=== PATIENT | female | born 1985 | race Caucasian/White ===

== ENCOUNTER 2017-11-17 00:17 | Emergency (ER) | payer SELFPAY ==
[~2017-11-17] VITALS: Ht 160 cm; Wt 54.4 kg
[2017-11-17] VITALS (38 sets, daily range): BP systolic 95–118; BP diastolic 50–79
[~2017-11-17 00:17] MED LIST: DiphenhydrAMINE 50mg/ml Inj IM ONE; Haloperidol 5mg/ml Inj IM ONE; LORazepam Inj 2mg/ml 1ml IM ONE
[2017-11-17] MEDS ORDERED: Haloperidol 5mg/ml Inj ONE (00:26)
[2017-11-17] MEDS ORDERED: DiphenhydrAMINE 50mg/ml Inj ONE (00:26)
[2017-11-17] MEDS ORDERED: LORazepam Inj 2mg/ml 1ml ONE (00:26)
[2017-11-17 01:51] LABS: BASOPHILS % (AUTO) 1.4 % (0.0-2.0); EOSINOPHILS % (AUTO) 1.9 % (0.0-3.0); HEMOGLOBIN 13.1 G/DL (12.0-16.0); LYMPHOCYTES % (AUTO) 20.3 % (20.0-45.0); MEAN CORPUSCULAR VOLUME 93 FL (80-99); MONOCYTES % (AUTO) 10.3 % (1.0-10.0); NEUTROPHILS % (AUTO) 66.1 % (45.0-75.0); PLATELET COUNT 280 K/UL (150-450); RED BLOOD COUNT 4.09 M/UL (4.20-5.40); RED CELL DISTRIBUTION WIDTH 12.1 % (11.6-14.8); WHITE BLOOD COUNT 8.8 K/UL (4.8-10.8)
[2017-11-17 01:52] LABS: ANION GAP 8 mmol/L (5-15); BLOOD UREA NITROGEN 12 mg/dL (7-18); CALCIUM 8.9 MG/DL (8.5-10.1); CARBON DIOXIDE 26 MMOL/L (21-32); CHLORIDE 108 MMOL/L (98-107); CREATININE 0.8 MG/DL (0.55-1.30); SODIUM 141 MMOL/L (136-145)
[2017-11-17 01:57] LABS: ALANINE AMINOTRANSFERASE 97 U/L (12-78); ALBUMIN 3.5 G/DL (3.4-5.0); ALBUMIN/GLOBULIN RATIO 0.9 (1.0-2.7); ALKALINE PHOSPHATASE 56 U/L (46-116); ASPARTATE AMINO TRANSFERASE 46 U/L (15-37); BILIRUBIN,TOTAL 0.4 MG/DL (0.2-1.0)
[2017-11-17 02:10] LABS: APPEARANCE,URINE CLEAR; BILIRUBIN, URINE NEGATIVE (NEGATIVE); GLUCOSE, URINE (UA) NEGATIVE (NEGATIVE); KETONES,URINE NEGATIVE (NEGATIVE); LEUKOCYTE ESTERASE ,URINE 1+ (NEGATIVE); NITRITE,URINE NEGATIVE (NEGATIVE); PH,URINE 6 (4.5-8.0); PROTEIN,URINE 1+ (NEGATIVE); UROBILINOGEN,URINE 1 MG/DL (0.0-1.0)
[2017-11-17 02:14] LABS: COLOR,URINE YELLOW
[2017-11-17] MEDS ORDERED: Haloperidol 5mg/ml Inj IM ONE (03:30)
[2017-11-17] MEDS ORDERED: LORazepam Inj 2mg/ml 1ml IM ONE (03:30)
--- NOTE | 2017-11-17 03:34 | Emergency Room Report ---
History of Present Illness General Chief Complaint: Substance Abuse Source: Patient (Luis Hoskins MD) Present Illness HPI 31-year-old female presents ED with altered mental status. Patient brought in by EMS from a home. Friend called 911 because patient was very agitated and combative after smoking crystal meth. Patient was given Versed but is still very agitated and combative. Admits to crystal meth. Denies any other drug use. Denies chest pain or shortness of breath. Denies hearing voices. No other aggravating relieving factors. Denies any other associated symptoms (Luis Hoskins MD) Allergies: Coded Allergies: No Known Allergies (Unverified , 11/17/17) Patient History Past Medical History: none Past Surgical History: none Pertinent Family History: none Social History: Reports: drug use; Denies: smoking, alcohol use Now: No - unknown Immunizations: UTD Reviewed Nursing Documentation: PMH: Agreed; PSxH: Agreed (Luis Hoskins MD) Nursing Documentation-PMH Past Medical History: No Stated History (Luis Hoskins MD) Review of Systems All Other Systems: negative except mentioned in HPI (Luis Hoskins MD) Physical Exam Vital Signs Date Time Temp Pulse Resp B/P (MAP) Pulse Ox O2 Delivery O2 Flow Rate FiO2 11/17/17 00:01 140 24 97 Room Air 11/17/17 00:20 98.7 105/59 98.7 Sp02 EP Interpretation: reviewed, normal General Appearance: other - agitated/combative Head: normocephalic, atraumatic Eyes: bilateral eye normal inspection, bilateral eye PERRL ENT: hearing grossly normal, normal pharynx, no angioedema, normal voice Neck: full range of motion, supple/symm/no masses Respiratory: chest non-tender, lungs clear, normal breath sounds, speaking full sentences Cardiovascular #1: regular rate, rhythm, no edema Cardiovascular #2: 2+ carotid (R), 2+ carotid (L), 2+ radial (R), 2+ radial (L) , 2+ dorsalis pedis (R), 2+ dorsalis pedis (L) Gastrointestinal: normal bowel sounds, non tender, soft, non-distended, no guarding, no rebound Rectal: deferred Genitourinary: normal inspection, no CVA tenderness Musculoskeletal: back normal, gait/station normal, normal range of motion, non- tender Neurologic: other - agitated/combative Psychiatric: other - agitated/combative Reflexes: 3+ bicep (R), 3+ bicep (L), 3+ tricep (R), 3+ tricep (L), 3+ knee (R) , 3+ knee (L) Skin: normal color, no rash, warm/dry, well hydrated Lymphatic: no adenopathy (Luis Hoskins MD) Medical Decision Making Restraint Attestation I, Luis Hoskins MD, have personally evaluated this patient. Laboratory tests have been reviewed and addressed accordingly. The patient is deemed to present a danger to themselves and/or others. This is based on the exam, history (provided by patient, EMS/[facility] and/or family) and observed or reported behavior. Attempts for non-invasive measures have been considered and/or attempted, however, have been futile. It is in the best interest of the nursing staff, the patient, and others involved in this patient's care that behavioral restraints be applied. Patient evaluation reveals the following: On reassessment of the patient, the patient will continue to require restraints for the safety of the patient, the nursing staff and others involved in the care of this patient. (Luis Hoskins MD) Diagnostic Impression: Primary Impression: Substance abuse Labs Test 11/17/17 01:00 11/17/17 01:45 White Blood Count 8.8 K/UL (4.8-10.8) Red Blood Count 4.09 M/UL (4.20-5.40) Hemoglobin 13.1 G/DL (12.0-16.0) Hematocrit 38.0 % (37.0-47.0) Mean Corpuscular Volume 93 FL (80-99) Mean Corpuscular Hemoglobin 32.0 PG (27.0-31.0) Mean Corpuscular Hemoglobin Concent 34.4 G/DL (32.0-36.0) Red Cell Distribution Width 12.1 % (11.6-14.8) Platelet Count 280 K/UL (150-450) Mean Platelet Volume 5.8 FL (6.5-10.1) Neutrophils (%) (Auto) 66.1 % (45.0-75.0) Lymphocytes (%) (Auto) 20.3 % (20.0-45.0) Monocytes (%) (Auto) 10.3 % (1.0-10.0) Eosinophils (%) (Auto) 1.9 % (0.0-3.0) Basophils (%) (Auto) 1.4 % (0.0-2.0) Sodium Level 141 MMOL/L (136-145) Potassium Level 3.0 MMOL/L (3.5-5.1) Chloride Level 108 MMOL/L (98-107) Carbon Dioxide Level 26 MMOL/L (21-32) Anion Gap 8 mmol/L (5-15) Blood Urea Nitrogen 12 mg/dL (7-18) Creatinine 0.8 MG/DL (0.55-1.30) Estimat Glomerular Filtration Rate > 60 mL/min (>60) Glucose Level 117 MG/DL (74-106) Calcium Level 8.9 MG/DL (8.5-10.1) Total Bilirubin 0.4 MG/DL (0.2-1.0) Aspartate Amino Transf (AST/SGOT) 46 U/L (15-37) Alanine Aminotransferase (ALT/SGPT) 97 U/L (12-78) Alkaline Phosphatase 56 U/L (46-116) Total Protein 7.3 G/DL (6.4-8.2) Albumin 3.5 G/DL (3.4-5.0) Globulin 3.8 g/dL Albumin/Globulin Ratio 0.9 (1.0-2.7) Salicylates Level 1.4 ug/mL (2.8-20) Acetaminophen Level < 2 MCG/ML (10-30) Serum Alcohol < 3 mg/dL Urine Color Yellow Urine Appearance Clear Urine pH 6 (4.5-8.0) Urine Specific Guys 1.015 (1.005-1.035) Urine Protein 1+ (NEGATIVE) Urine Glucose (UA) Negative (NEGATIVE) Urine Ketones Negative (NEGATIVE) Urine Occult Blood 1+ (NEGATIVE) Urine Nitrite Negative (NEGATIVE) Urine Bilirubin Negative (NEGATIVE) Urine Urobilinogen 1 MG/DL (0.0-1.0) Urine Leukocyte Esterase 1+ (NEGATIVE) Urine RBC 2-4 /HPF (0 - 2) Urine WBC 5-10 /HPF (0 - 2) Urine Squamous Epithelial Cells Few /LPF (NONE/OCC) Urine Bacteria Few /HPF (NONE) Urine Mucus Many /LPF (NONE/OCC) Urine HCG, Qualitative Negative (NEGATIVE) Urine Opiates Screen Negative (NEGATIVE) Urine Barbiturates Screen Negative (NEGATIVE) Phencyclidine (PCP) Screen Negative (NEGATIVE) Urine Amphetamines Screen Positive (NEGATIVE) Urine Benzodiazepines Screen Positive (NEGATIVE) Urine Cocaine Screen Positive (NEGATIVE) Urine Marijuana (THC) Screen Positive (NEGATIVE) (Luis Hoskins MD) ER Course This is a continuation note On my shift from approximately 7 AM total 2 PM Patient has several neurological exams performed Remains appropriate with her respirations, gag reflex is intact patient remains hemodynamically stable She has slowly become more arousable to physical and verbal stimuli However still requiring further observation Patient extensive workup was negative and therefore further observation is required in the ER (Kayla Arora DO) ER Course The patient was noted to have improvement in her mental status after observation. The patient is advised to follow-up with outpatient mental health.The patient was given referrals (Elias Arenas MD) Last Vital Signs Date Time Temp Pulse Resp B/P (MAP) Pulse Ox O2 Delivery O2 Flow Rate FiO2 11/17/17 00:40 92 20 108/69 97 Room Air 11/17/17 00:20 98.7 98.7 (Luis Hoskins MD) Scripts Unable to Obtain Active Prescriptions or Reported Meds Referrals: NOT CHOSEN IPA/,REFERRING (PCP) Luis Hoskins MD November 17, 2017 03:34 Kayla Arora DO November 17, 2017 13:38 Elias Arenas MD November 17, 2017 21:49
== END 2017-11-17 21:56 | disposition home or self-care (01) ==
LOC: EDBD 00:17 → EMR 01:36
DX: R41.82 Altered mental status, unspecified (principal)
CPT/HCPCS: 36415; 80053; 80307; 81003; 81025; 85025; 96372; 96374; 99284; G0480; J1200; J1630; 80329; J8499